=== PATIENT | female | born 1985 ===

== ENCOUNTER 2018-02-09 06:44 | Outpatient (CLI) | payer OTHER ==
[~2018-02-09 06:44] MED LIST: CATAFLAM50 MG PO; FLEXERIL10 MG PO; PHENERGAN25 MG PO; ZOVIRAX15 GM TP
== END 2018-02-09 06:55 | disposition home or self-care (01) ==
LOC: LAB 06:44
DX: D64.9 Anemia, unspecified (principal); R53.1 Weakness; D68.0 Von Willebrand disease; E78.5 Hyperlipidemia, unspecified

== ENCOUNTER → 2018-02-10 | Outpatient (CLI) | payer OTHER | END | disposition home or self-care (01) | LOC: PPHC 15:20 | DX: Z01.89 Encounter for other specified special examinations (principal); J00 Acute nasopharyngitis [common cold] ==

== ENCOUNTER 2018-05-27 09:05 | Outpatient (CLI) | payer OTHER | END 2018-05-27 09:16 | disposition home or self-care (01) | LOC: RX STUDY 09:05 | DX: R13.19 Other dysphagia (principal) ==